=== PATIENT | female | born 1985 | race Two or more races ===

== ENCOUNTER 2019-10-20 04:56 | Emergency (ER) | payer SELFPAY ==
[~2019-10-20] VITALS: Ht 160 cm; Wt 135.2 kg
--- NOTE | 2019-10-20 05:29 | NUR ---
RIGHT HAND PAIN, SWELLING, WEAKNESS AND NUMBNESS FOR MORE THAN A WEEK. NEURO INTACT
[2019-10-20 06:18] LABS: BASOPHILS # (AUTO) 0.05 x10^3/uL (0-0.1); BASOPHILS % (AUTO) 1 % (0-1); EOSINOPHILS # (AUTO) 0.16 x10^3/uL (0-0.4); EOSINOPHILS % (AUTO) 2 % (1-7); LYMPHOCYTES # (AUTO) 2.42 x10^3/uL (1-3.4); LYMPHOCYTES % (AUTO) 32 % (22-44); MD NO; MEAN CORPUSCULAR HEMOGLOBIN 29.7 pg (27.0-34.8); MEAN CORPUSCULAR HGB CONC 33.3 g/dL (32.4-35.8); MEAN CORPUSCULAR VOLUME 89.2 fL (80-100); MEAN PLATELET VOLUME 8.3 fL (7.4-10.4); MONOCYTES # (AUTO) 0.44 x10^3/uL (0.2-0.8); MONOCYTES % (AUTO) 6 % (2-9); NEUTROPHILS # (AUTO) 4.45 x10^3/uL (1.8-6.8); NEUTROPHILS % (AUTO) 59 % (42-75); PLATELET COUNT 301 x10^3/uL (130-400); RED CELL DISTRIBUTION WIDTH 13.5 % (9.6-15.2)
[2019-10-20 06:23] LABS: ALANINE AMINOTRANSFERASE 56 U/L (12-78); ALBUMIN 3.5 g/dL (3.4-5.0); ANION GAP 8 mmol/L (5-15); CALCIUM 8.3 mg/dL (8.5-10.1); CHLORIDE 108 mmol/L (98-107); CREATININE 0.62 mg/dL (0.55-1.02)
[2019-10-20 06:25] LABS: HCT (SEDRATE) 41.9 % (34.6-47.8)
[2019-10-20 06:26] LABS: ALKALINE PHOSPHATASE 95 U/L (45-117); BILIRUBIN,TOTAL 0.3 mg/dL (0.2-1.0); TOTAL PROTEIN 7.5 g/dL (6.4-8.2)
--- NOTE | 2019-10-20 06:39 | NUR ---
LABS AND X RAYS COMPLEST AWAITING RESULTS
--- NOTE | 2019-10-20 07:00 | NUR ---
RECEIVED BEDSIDE REPORT FROM CRISTHIAN WEBSTER RN. PT RESTING ON [facility]. NADN. DAVIS.
[2019-10-20 07:16] VITALS: BP 154/74
== END 2019-10-20 07:18 | disposition home or self-care (01) ==
LOC: ED 05:42
DX: M79.18 Myalgia, other site (principal); I10 Essential (primary) hypertension; M79.631 Pain in right forearm
CPT/HCPCS: 29260; 36415; 80053; 85025; 85651; 99284